=== PATIENT | female | born 1965 | race Caucasian/White ===

== ENCOUNTER 2022-12-09 16:52 | Inpatient (IN) | payer OTHER ==
[2022-12-09] MEDS ORDERED: traMADol HCl 50 MG TAB PO PRN (17:59)
[2022-12-09] MEDS ORDERED: Dextrose 5% in Water 1,000 ML IV PRN (17:59)
[2022-12-09] MEDS ORDERED: TETANUS, DIPHTHERIA TOX,ADULT (TDVAX) 0.5 ML VIAL IM ONE (17:59)
[2022-12-09] MEDS ORDERED: Ondansetron ODT 4 MG TAB PO PRN (17:59)
[2022-12-09] MEDS ORDERED: Dextrose 50% Abboject 50 ML SYRINGE SLOW IVP PRN (17:59)
[2022-12-09] MEDS ORDERED: hydrALAZINE 20 MG/ML VIAL SLOW IVP PRN (17:59)
[2022-12-09] MEDS ORDERED: Glucagon 1 MG/ML KIT IM PRN (17:59)
[2022-12-09] MEDS ORDERED: HumaLOG 300 UNITS/3 ML VIAL SC PRN (17:59)
[2022-12-09] MEDS ORDERED: Morphine 2 MG/ML VIAL SLOW IVP PRN (17:59)
[2022-12-09] MEDS ORDERED: Rib Fracture Protocol PO SCH (18:00)
[2022-12-09 18:36] VITALS: BMI 31.3
[2022-12-09] MEDS ORDERED: Cyclobenzaprine 10 MG TAB PO PRN (18:45)
[2022-12-09] MEDS ORDERED: methylPREDNISolone Sod Succ 40 MG VIAL IM SCH (18:45)
[2022-12-09] MEDS: Acetaminophen 325 MG TAB PO SCH (19:43)
[2022-12-09] MEDS ORDERED: Ipratropium/Albuterol 3 ML NEB NEB SCH (21:00)
[2022-12-09] MEDS: Gabapentin 300 MG CAP PO SCH (21:17)
[2022-12-09] MEDS: Ibuprofen 200 MG TAB PO SCH (21:17)
[2022-12-09] MEDS: Famotidine 20 MG TAB PO SCH (21:17)
[2022-12-09] MEDS: Ipratropium/Albuterol 3 ML NEB NEB SCH (23:11)
[2022-12-09] MEDS: traMADol HCl 50 MG TAB PO SCH (23:41)
[2022-12-09] MEDS: Acetaminophen 500 MG TAB PO SCH (23:41)
[2022-12-09] MEDS: Sodium Chloride 0.9% 1,000 ML IV SCH (23:44)
[2022-12-10] MEDS: Acetaminophen 325 MG TAB PO SCH ×2 (00:27→05:12)
[2022-12-10] MEDS: Ipratropium/Albuterol 3 ML NEB NEB SCH ×3 (02:45→15:05)
[2022-12-10] MEDS: traMADol HCl 50 MG TAB PO SCH ×2 (05:03→12:25)
[2022-12-10] MEDS: Ibuprofen 200 MG TAB PO SCH ×2 (05:04→14:05)
[2022-12-10] MEDS: Acetaminophen 500 MG TAB PO SCH ×2 (05:05→12:25)
[2022-12-10 05:15] LABS: #Monocytes 0.3 thou/uL (0.11-0.59); #Neutrophils 9.1 thou/uL (1.40-6.50); %Basophils 0.2 % (0.0-1.0); %Lymphocytes 14.6 % (21.0-51.0); %Monocytes 2.3 % (0.0-10.0); %Neutrophils 82.6 % (42.0-75.0); Hematocrit 43.9 % (36.0-47.0); Mean Corpuscular HGB CONC 31.9 g/dL (32.0-36.0); Mean Corpuscular Hemoglobin 28.6 pg (27.0-31.0); Mean Corpuscular Volume 89.8 fl (78.0-98.0); Mean Platelet Volume 9.3 fL (7.4-10.4); Platelet Count 289 10x3/uL (130-400); RBC Distribution Width 14.9 % (11.5-14.5); Red Blood Cell (RBC) Count 4.89 mill/uL (4.20-5.40)
[2022-12-10 05:38] LABS: Anion Gap 13 mmol/L (10-20); BUN (Urea Nitrogen) 17 mg/dL (9.8-20.1); Calc. Creatinine Clearance 99 mL/min (70-130); Calcium 9.2 mg/dL (7.8-10.44); Carbon Dioxide 26 mmol/L (22-29); Chloride 101 mmol/L (98-107); Estimated GFR 74; Glucose 168 mg/dL (70-105); Potassium 4.4 mmol/L (3.5-5.1); Sodium 136 mmol/L (136-145)
[2022-12-10] MEDS ORDERED: guaiFENesin/Codeine 200 mg/20 mg 10 ml Cup PO PRN (07:05)
[2022-12-10] MEDS: Famotidine 20 MG TAB PO SCH (08:39)
[2022-12-10] MEDS: Amlodipine 5 MG TAB PO SCH ×2 (08:46→09:33)
[2022-12-10] MEDS: Gabapentin 300 MG CAP PO SCH ×2 (08:47→14:05)
[2022-12-10] MEDS: Lisinopril 20 MG TAB PO SCH ×2 (08:47→09:33)
[2022-12-10] MEDS: Sodium Chloride 0.9% 1,000 ML IV SCH (08:51)
[2022-12-10] MEDS ORDERED: Aspirin 81 mg Enteric Coated Tablet PO SCH (09:00)
[2022-12-10] MEDS ORDERED: Nicotine 14 MG PATCH TD SCH (12:45)
[2022-12-10 13:41] VITALS: BP 118/64; TEMP 97.4
[2022-12-11] MEDS ORDERED: LevoFLOXacin 750 MG TAB PO SCH (06:00)
== END 2022-12-10 16:15 | disposition home or self-care (01) | DRG 184 ==
LOC: SJX 16:52 → SURG B 17:24 → OBSVTOIN 12-10 09:38
PROVIDERS: ADMIT Surgery; ATTEND Surgery
DX: S22.42XA Multiple fractures of ribs, left side, initial encounter for closed fracture (principal); B20 Human immunodeficiency virus [HIV] disease; J44.1 Chronic obstructive pulmonary disease with (acute) exacerbation; I10 Essential (primary) hypertension; F17.210 Nicotine dependence, cigarettes, uncomplicated; W18.30XA Fall on same level, unspecified, initial encounter; Z71.6 Tobacco abuse counseling; Z79.51 Long term (current) use of inhaled steroids; Z79.899 Other long term (current) drug therapy
CPT/HCPCS: 36415; 71045; 80048; 85025; 94640; J2920; J7050; J7620